=== PATIENT | female | born 1970 | race Two or more races ===

== ENCOUNTER → 2018-12-22 15:35 | Outpatient (CLI) | payer OTHER | END | disposition home or self-care (01) | LOC: LAB 15:35 | DX: J11.1 Influenza due to unidentified influenza virus with other respiratory manifestations (principal); J20.0 Acute bronchitis due to Mycoplasma pneumoniae ==

== ENCOUNTER 2019-01-25 12:35 | Outpatient (CLI) | payer OTHER | END 2019-01-25 12:43 | disposition home or self-care (01) | LOC: LAB 12:35 | DX: J11.1 Influenza due to unidentified influenza virus with other respiratory manifestations (principal) ==